=== PATIENT | male | born 1990 | race Caucasian/White ===

== ENCOUNTER 2018-09-11 15:02 | Emergency (ER) | payer MEDICAID ==
[~2018-09-11] VITALS: Ht 170.2 cm; Wt 81.0 kg
[2018-09-11 15:12] VITALS: BP 117/73
[2018-09-11] MEDS ORDERED: LIDOcaine 1.5% w/epinephrine 1:200,000 5ml ampul IJ ONE (15:15)
[2018-09-11] MEDS ORDERED: TETanus/Pertussis (Acell)/Diphther VAC/PF (Tdap-Adult) 0.5ml syringe IM ONE (15:15)
[2018-09-11] MEDS ORDERED: LIDOcaine 1% w/epiNEPHrine 1:200,000 30ml vial IJ ONE (15:25)
[2018-09-11] MEDS ORDERED: CEPH-572 PO (16:56)
== END 2018-09-11 17:12 | disposition home or self-care (01) ==
LOC: ER 15:03
DX: S81.012A Laceration without foreign body, left knee, initial encounter (principal); W26.8XXA Contact with other sharp object(s), not elsewhere classified, initial encounter; Y93.89 Activity, other specified; Y92.89 Other specified places as the place of occurrence of the external cause; Y99.8 Other external cause status
CPT/HCPCS: 12002; 73560; 90471; 90715; 99283; J3490

== ENCOUNTER 2021-05-26 05:42 | Emergency (ER) | payer MEDICAID ==
[~2021-05-26] VITALS: Ht 170.2 cm; Wt 88.6 kg
[2021-05-26] MEDS ORDERED: ketorolac trometh. 30mg/ml inj. IM ONE (06:55)
[2021-05-26] MEDS ORDERED: oxyCODONE/APAP 10/325mg tablet PO ONE (06:55)
--- NOTE | 2021-05-26 06:58 | NUR ---
VASC. TECH IS AWARE AND ETA IS 5-10MIN
[2021-05-26 08:27] LABS: BASOPHILS % (AUTO) 0.6 % (0-1); EOSINOPHILS # (AUTO) 0.1 X10'3 (0-0.9); EOSINOPHILS % (AUTO) 1.8 % (0-6); HEMATOCRIT 40.6 % (42.0-52.0); HEMOGLOBIN 14.2 g/dl (14.0-17.9); LYMPHOCYTES # (AUTO) 2.2 X10'3 (1.1-4.8); LYMPHOCYTES % (AUTO) 33.2 % (21-51); MEAN CORPUSCULAR HEMOGLOBIN 31.1 PG (27.0-31.0); MEAN CORPUSCULAR VOLUME 89.1 FL (78-98); MONOCYTES # (AUTO) 0.6 X10'3 (0-0.9); MONOCYTES % (AUTO) 8.5 % (2-12); NEUTROPHILS # (AUTO) 3.7 X10'3 (1.8-7.7); NEUTROPHILS % (AUTO) 55.9 % (42-75); PLATELET COUNT 216 X10'3 (140-440); RED BLOOD COUNT 4.56 X10'6 (4.70-6.10); RED CELL DISTRIBUTION WIDTH 13.2 % (11.5-14.5); WHITE BLOOD COUNT 6.7 X10'3 (4.5-11.0)
[2021-05-26 08:35] LABS: ALANINE AMINOTRANSFERASE 369 U/L (12-78); ALBUMIN 3.8 G/DL (3.4-5.0); ALKALINE PHOSPHATASE 118 IU/L (46-116); ANION GAP 10 (8-16); ASPARTATE AMINO TRANSFERASE 197 U/L (10-37); BILIRUBIN,TOTAL 0.6 MG/DL (0.1-1.0); BLOOD UREA NITROGEN 13 MG/DL (7-18); BUN/CREATININE RATIO 12.6 (5.4-32.0); CALCIUM 8.5 MG/DL (8.5-10.1); CHLORIDE 105 MMOL/L (99-107); CREATININE 1.03 MG/DL (0.60-1.10); GLUCOSE 102 MG/DL (70-104); SODIUM 139 MMOL/L (135-145); TOTAL CARBON DIOXIDE 24.4 MMOL/L (24-32); TOTAL PROTEIN 7.5 G/DL (6.4-8.2); eGFR 84 ML/MIN
[2021-05-26 08:37] LABS: C-REACTIVE PROTEIN 1.37 MG/DL (0.0-0.5); CREATINE KINASE 243 U/L (39-308)
[2021-05-26] MEDS ORDERED: iohexol 300mg/ml 100ml inj. ONE (08:48)
[2021-05-26] MEDS ORDERED: CLIN-97 PO (12:07)
[2021-05-26] MEDS ORDERED: OXYC-145 PO (12:07)
[2021-05-26 12:21] VITALS: BP 123/56
== END 2021-05-26 12:30 | disposition home or self-care (01) ==
LOC: ER 05:42
DX: M79.671 Pain in right foot (principal); M79.604 Pain in right leg; Z88.0 Allergy status to penicillin; Z79.2 Long term (current) use of antibiotics; Z72.89 Other problems related to lifestyle
CPT/HCPCS: 29515; 36415; 73701; 80053; 82550; 85025; 85651; 86140; 93971; 96372; 99285; J1885; Q9967